=== PATIENT | female | born 1995 | race Caucasian/White ===

== ENCOUNTER 2021-01-03 11:35 | Emergency (ER) | payer OTHER ==
[2021-01-03 12:12] VITALS: BP 135/93; PULSE 60; TEMP 97.9; BMI 23.6
[2021-01-03] MEDS ORDERED: KETOROLAC TROMETHAMINE 60 MG/2 ML VIAL IM ONE (12:53)
[2021-01-03] MEDS ORDERED: KETOROLAC TROMETHAMINE 60 MG/2 ML VIAL ONE (12:55)
== END 2021-01-03 13:02 | disposition home or self-care (01) ==
LOC: JERFT 11:35
PROC: 3E0233Z Introduction of Anti-inflammatory into Muscle, Percutaneous Approach (ICD-10-PCS; principal; 2021-01-03)
DX: S16.1XXA Strain of muscle, fascia and tendon at neck level, initial encounter (principal)
CPT/HCPCS: 99284-25

== ENCOUNTER 2023-08-31 16:12 | Emergency (ER) | payer OTHER ==
[2023-08-31 16:16] VITALS: BMI 29.2
[2023-08-31 17:14] LABS: THROAT:GRP A STREP DETECTED (NOTDETECTED)
[2023-08-31] MEDS ORDERED: KETOROLAC TROMETHAMINE 30 MG/1 ML VIAL IM ONE (17:32)
[2023-08-31] MEDS ORDERED: PENICILLIN G BENZATHINE 1,200,000 UNIT/2 ML PFS IM ONE (17:33)
[2023-08-31] MEDS ORDERED: KETOROLAC TROMETHAMINE 30 MG/1 ML VIAL ONE (17:37)
[2023-08-31 18:44] VITALS: BP 123/77; PULSE 87; RESP 16; TEMP 98.6
== END 2023-08-31 18:40 | disposition home or self-care (01) ==
LOC: JER 16:12 → JERFT 16:12
PROC: 3E0233Z Introduction of Anti-inflammatory into Muscle, Percutaneous Approach (ICD-10-PCS; principal; 2023-08-31)
PROC: 3E02329 Introduction of Other Anti-infective into Muscle, Percutaneous Approach (ICD-10-PCS; 2023-08-31)
DX: J02.0 Streptococcal pharyngitis (principal); R07.0 Pain in throat; R13.10 Dysphagia, unspecified; Z20.822 Contact with and (suspected) exposure to COVID-19
CPT/HCPCS: 0241U-QW; 87651; 99284-25

== ENCOUNTER 2024-06-04 08:25 | Emergency (ER) | payer OTHER ==
[2024-06-04 08:33] VITALS: RESP 16; BMI 22.1
[2024-06-04] MEDS ORDERED: ACETAMINOPHEN 500 MG TABLET (FP) ONE (09:22)
[2024-06-04] MEDS ORDERED: PENICILLIN G BENZATHINE 1,200,000 UNIT/2 ML PFS IM ONE (09:23)
[2024-06-04] MEDS: PENICILLIN G BENZATHINE 1,200,000 UNIT/2 ML PFS IM ONE (09:35)
[2024-06-04] MEDS: ACETAMINOPHEN 500 MG TABLET (FP) PO ONE (09:36)
[2024-06-04 09:51] LABS: THROAT:GRP A STREP DETECTED (NOTDETECTED)
[2024-06-04 11:48] VITALS: BP 105/69; PULSE 74; TEMP 99.1
== END 2024-06-04 12:06 | disposition home or self-care (01) ==
LOC: JER 08:25
DX: J02.9 Acute pharyngitis, unspecified (principal); B95.1 Streptococcus, group B, as the cause of diseases classified elsewhere; H92.01 Otalgia, right ear; R51.9 Headache, unspecified; R50.9 Fever, unspecified; Z20.822 Contact with and (suspected) exposure to COVID-19
CPT/HCPCS: 0241U-QW; 87651; 99284-25